=== PATIENT | male | born 1965 | race Caucasian/White ===

== ENCOUNTER 2020-10-18 12:52 | Emergency (ER) | payer OTHER ==
[~2020-10-18] VITALS: Ht 175.3 cm; Wt 93.9 kg
--- NOTE | 2020-10-18 13:16 | NUR ---
PATIENT WALKED BACK FROM TRIAGE WITH CHIEF C/O "MY LUNGS HURT" X2 DAYS. PATIENT DENIES SOB, PER PATIENT REPORT "SLIGHT FEVER YESTERDAY." PATIENT DENIES N/V/D. NADN, AT BEDSIDE, CALL LIGHT WITHIN REACH.
[2020-10-18] MEDS ORDERED: ASPIRIN 81 MG TABLET CHEW ONE (13:59)
[2020-10-18] MEDS ORDERED: ASPIRIN 81 MG TABLET CHEW PO ONE (14:00)
--- NOTE | 2020-10-18 14:05 | NUR ---
LABS COLLECTED. XRAY AT BEDSIDE. ORDERED MEDICATIONS ADMINISTERED. PT RESTING ON GURNEY. STATES NO NEEDS AT THIS TIME. CALL LIGHT W/IN REACH
[2020-10-18 14:13] LABS: BASOPHILS % (AUTO) 1 % (0-1); EOSINOPHILS % (AUTO) 0 % (1-7); LYMPHOCYTES % (AUTO) 21 % (22-44); MEAN CORPUSCULAR HEMOGLOBIN 29.9 pg (27.5-34.5); MEAN CORPUSCULAR HGB CONC 33.4 g/dL (33.2-36.2); MEAN PLATELET VOLUME 7.8 fL (7.4-10.4); MONOCYTES % (AUTO) 11 % (2-9); NEUTROPHILS % (AUTO) 67 % (42-75); PLATELET COUNT 232 x10^3/uL (130-400); RED BLOOD COUNT 5.81 x10^6/uL (4.38-5.82); RED CELL DISTRIBUTION WIDTH 13.8 % (9.4-14.8)
[2020-10-18 14:14] LABS: MD NO
--- NOTE | 2020-10-18 14:19 | NUR ---
PT RESTING ON Partnered. VSS. NAD. CALL LIGHT W/IN REACH. STATES NO NEEDS AT THIS TIME
[2020-10-18 14:23] LABS: ALANINE AMINOTRANSFERASE 26 U/L (12-78); ALBUMIN 3.8 g/dL (3.4-5.0); ANION GAP 7 mmol/L (5-15); CHLORIDE 106 mmol/L (98-107)
[2020-10-18 14:28] LABS: ALKALINE PHOSPHATASE 117 U/L (45-117); BILIRUBIN,TOTAL 0.3 mg/dL (0.2-1.0); TOTAL PROTEIN 7.3 g/dL (6.4-8.2); TROPONIN I < 0.015 ng/mL (0.000-0.045)
[2020-10-18 17:50] VITALS: BP 137/92
== END 2020-10-18 15:40 | disposition home or self-care (01) ==
LOC: ED 15:34
DX: U07.1 COVID-19 (principal); J40 Bronchitis, not specified as acute or chronic; B34.9 Viral infection, unspecified; I51.7 Cardiomegaly; R00.0 Tachycardia, unspecified; I49.3 Ventricular premature depolarization
CPT/HCPCS: 36415; 71045; 80053; 83880; 84484; 85025; 85379; 87635; 93005; 99285